=== PATIENT | male | born 1985 | race Two or more races ===

== ENCOUNTER 2017-03-16 10:16 | Inpatient (IN) | payer OTHER ==
[~2017-03-16] VITALS: Ht 172.7 cm; Wt 90.7 kg
[2017-03-16] MEDS ORDERED: Morphine Sulfate 4mg/ml Inj IVP ONE (10:30)
[2017-03-16] MEDS ORDERED: ceFAZolin sod 1 GM in NS 55 ML IVPB ONE (10:30)
[2017-03-16] MEDS ORDERED: TdaP Vaccine 0.5ml Syr IM ONE (10:45)
[2017-03-16 10:49] LABS: BASOPHILS % (AUTO) 1.3 % (0.0-2.0); EOSINOPHILS % (AUTO) 1.4 % (0.0-3.0); LYMPHOCYTES % (AUTO) 37.4 % (20.0-45.0); MEAN CORPUSCULAR HEMOGLOBIN 28.5 PG (27.0-31.0); MEAN CORPUSCULAR HGB CONC 33.2 G/DL (32.0-36.0); MEAN CORPUSCULAR VOLUME 86 FL (80-99); MEAN PLATELET VOLUME 7.9 FL (6.5-10.1); MONOCYTES % (AUTO) 8.5 % (1.0-10.0); NEUTROPHILS % (AUTO) 51.4 % (45.0-75.0); PLATELET COUNT 262 K/UL (150-450); RED BLOOD COUNT 5.66 M/UL (4.70-6.10); RED CELL DISTRIBUTION WIDTH 12.9 % (11.6-14.8); WHITE BLOOD COUNT 7.8 K/UL (4.8-10.8)
[2017-03-16 11:05] VITALS: BP 141/67
--- NOTE | 2017-03-16 11:06 | Emergency Room Report ---
History of Present Illness General Chief Complaint: Lower Extremity Injury Source: Patient Present Illness HPI Patient is a 31-year-old male who presented after increased pain to his right foot. Patient had reportedly been at work when he trapped his toe and the loading ramp. The patient having pain to the first and second toes. He denied other locations of pain. Patient had no recent tetanus vaccine. Patient reports not having anything to eat or drink since approximately 6 AM. Injury occurred approximately 15-20 minutes prior to arrival. Allergies: Coded Allergies: No Known Allergies (Unverified , 03/16/17) Patient History Past Medical History: see triage record Reviewed Nursing Documentation: PMH: Agreed, PSxH: Agreed Nursing Documentation-PMH Past Medical History: No Stated History Review of Systems All Other Systems: negative except mentioned in HPI Physical Exam Vital Signs Date Time Temp Pulse Resp B/P Pulse Ox O2 Delivery O2 Flow Rate FiO2 03/16/17 10:18 97.9 97 18 232/86 98 Room Air Sp02 EP Interpretation: reviewed, normal General Appearance: normal inspection, well appearing, no apparent distress, alert, GCS 15, non-toxic Head: normocephalic, atraumatic ENT: normal ENT inspection, hearing grossly normal, normal voice Neck: normal inspection, full range of motion, supple, no bony tend Respiratory: normal inspection, lungs clear, normal breath sounds, no respiratory distress, no retraction, no wheezing Cardiovascular #1: regular rate, rhythm, no edema Gastrointestinal: normal inspection, normal bowel sounds, non tender, soft, no guarding, no hernia Genitourinary: no CVA tenderness Musculoskeletal: back normal, normal range of motion, other - amputation to right 1st and 2nd toes. Neurologic: normal inspection, alert, oriented x3, responsive, microsoft dynamics developer III-XII nml as tested, speech normal Psychiatric: normal inspection, judgement/insight normal, mood/affect normal Skin: normal inspection, normal color, no rash Medical Decision Making Diagnostic Impression: Primary Impression: Amputation of great toe, right, traumatic Additional Impression: Amputated toe of right foot ER Course Patient presented for foot pain. Differential diagnosis included was not limited to amputation, fracture, dislocation, among others.Because of complexity of patient's case laboratory testing and imaging studies were ordered. X-ray imaging of the right foot showed a distal phalanx amputation of the right first and second toe. Dr. Jacob Dunn was contacted for plastic surgeon management of the wounds. Patient was given IV Ancef and tetanus vaccine was updated. Dr. Shah was contacted for Dr. Can for inpatient management. Labs Test 03/16/17 10:36 White Blood Count 7.8 K/UL (4.8-10.8) Red Blood Count 5.66 M/UL (4.70-6.10) Hemoglobin 16.1 G/DL (14.2-18.0) Hematocrit 48.6 % (42.0-52.0) Mean Corpuscular Volume 86 FL (80-99) Mean Corpuscular Hemoglobin 28.5 PG (27.0-31.0) Mean Corpuscular Hemoglobin Concent 33.2 G/DL (32.0-36.0) Red Cell Distribution Width 12.9 % (11.6-14.8) Platelet Count 262 K/UL (150-450) Mean Platelet Volume 7.9 FL (6.5-10.1) Neutrophils (%) (Auto) 51.4 % (45.0-75.0) Lymphocytes (%) (Auto) 37.4 % (20.0-45.0) Monocytes (%) (Auto) 8.5 % (1.0-10.0) Eosinophils (%) (Auto) 1.4 % (0.0-3.0) Basophils (%) (Auto) 1.3 % (0.0-2.0) Prothrombin Time 10.0 SEC (9.30-11.50) Prothromb Time International Ratio 1.0 (0.9-1.1) Activated Partial Thromboplast Time 25 SEC (23-33) Sodium Level 139 mEQ/L (135-145) Potassium Level 3.5 mEQ/L (3.4-4.9) Chloride Level 99 mEQ/L (98-107) Carbon Dioxide Level 23 mEQ/L (20-30) Anion Gap 17 (5-15) Blood Urea Nitrogen 19 mg/dL (7-23) Creatinine 1.2 mg/dL (0.7-1.2) Estimat Glomerular Filtration Rate > 60 mL/min (>60) Glucose Level 114 mg/dL (74-106) Calcium Level 9.2 mg/dL (8.6-10.2) Total Bilirubin 0.3 mg/dL (0.0-1.2) Aspartate Amino Transf (AST/SGOT) 20 U/L (5-40) Alanine Aminotransferase (ALT/SGPT) 36 U/L (3-41) Alkaline Phosphatase 59 U/L (40-129) Total Protein 7.5 g/dL (6.6-8.7) Albumin 4.7 g/dL (3.5-5.2) Globulin 2.8 g/dL Albumin/Globulin Ratio 1.6 (1.0-2.7) EKG Diagnostic Results Rate: normal Rhythm: NSR ST Segments: no acute changes Chest X-Ray Diagnostic Results EP Interpretation: Yes Findings: no consolidation, no effusion, no pneumothorax, no acute cardiopulmonary disease Number of Views: 1 Last Vital Signs Date Time Temp Pulse Resp B/P Pulse Ox O2 Delivery O2 Flow Rate FiO2 03/16/17 10:18 97.9 97 18 232/86 98 Room Air Status: unchanged Disposition: ADMITTED INPATIENT Condition: Serious Referrals: NOT CHOSEN IPA/,REFERRING (PCP) Jerry Bearden Mar 16, 2017 11:06
[2017-03-16 11:10] LABS: ALANINE AMINOTRANSFERASE 36 U/L (3-41); ALBUMIN/GLOBULIN RATIO 1.6 (1.0-2.7); ANION GAP 17 (5-15); ASPARTATE AMINO TRANSFERASE 20 U/L (5-40); CALCIUM 9.2 mg/dL (8.6-10.2); CARBON DIOXIDE 23 mEQ/L (20-30); CHLORIDE 99 mEQ/L (98-107); CREATININE 1.2 mg/dL (0.7-1.2); GLOMERULAR FILTRATION RATE > 60 mL/min (>60); HEMOLYSIS 7; POTASSIUM 3.5 mEQ/L (3.4-4.9); SODIUM 139 mEQ/L (135-145); TOTAL PROTEIN 7.5 g/dL (6.6-8.7)
[2017-03-16] MEDS ORDERED: Morphine Sulfate 4mg/ml Inj IVP PRN (12:45)
--- NOTE | 2017-03-16 12:52 | History and Physical ---
History of Present Illness General Date patient seen: Mar 16, 2017 Time patient seen: 12:40 Reason for Hospitalization: Lower Extremity Injury Present Illness HPI 31yo male with no sig pmh who presents with RLE work-related injury. Pt was working on the job where he lifted some stuff and partially amputated his right great and second toe. Per , a cone tender fell on pt's foot and affected his R 1st and 2nd toes. Patient had reportedly been at work when he trapped his toe and the loading ramp. The patient having pain to the first and second toes. He denied other locations of pain. Patient had no recent tetanus vaccine. Patient reports not having anything to eat or drink since approximately 6 AM. Injury occurred approximately 15-20 minutes prior to arrival to ED. Allergies: Coded Allergies: No Known Allergies (Unverified , 03/16/17) Patient History History Provided By: Patient, Family Member, Medical Record, EMS Healthcare decision maker Resuscitation status Advanced Directive on File Past Medical/Surgical History Past Medical/Surgical History: (1) No significant past medical history (2) No significant past surgical history Family History Family History: No significant family history Social History Social History: (1) No significant social history Review of Systems Constitutional: Reports: no symptoms Eye: Reports: no symptoms ENT: Reports: no symptoms Respiratory: Reports: no symptoms Cardiovascular: Reports: no symptoms Gastrointestinal: Reports: no symptoms Genitourinary: Reports: no symptoms Musculoskeletal: Reports: muscle pain Skin: Reports: no symptoms Psychiatric: Reports: no symptoms Neurological: Reports: no symptoms Endocrine: Reports: no symptoms Hematologic/Lymphatic: Reports: no symptoms All Other Systems: negative except mentioned in HPI Physical Exam Physical Exam Narrative General: alert, cooperative, no distress, appears stated age Head: normocephalic, without obvious abnormality, atraumatic Eyes: conjunctivae/corneas clear. PERRL, EOM's intact Throat: lips, mucosa, and tongue normal. MMM Neck: supple, symmetrical, trachea midline, and no JVD Lungs: clear to auscultation bilaterally Heart: regular rate and rhythm, S1, S2 normal, no murmur, click, rub or gallop Abdomen: soft, non-tender, non-distended, bowel sounds normal; no masses or organomegaly Extremities: The nail bed as well as the distal portion of the pulp had been amputated off of the great and second toe with the distal end of the distal phalanx exposed on both toes. The trump of the nail bed remains visible. The soft tissue appears to have no visible undamaged vessels for replantation. Pulses: 2+ and symmetric Skin: skin color, texture, turgor normal; no rashes or lesions Neurologic: grossly normal, no focal deficits Last 24 Hour Vital Signs Date Time Temp Pulse Resp B/P Pulse Ox O2 Delivery O2 Flow Rate FiO2 03/16/17 11:20 97.8 03/16/17 11:05 98.0 87 16 141/67 98 Room Air 03/16/17 10:18 97.9 97 18 232/86 98 Room Air Laboratory Tests Test 03/16/17 10:36 White Blood Count 7.8 K/UL (4.8-10.8) Red Blood Count 5.66 M/UL (4.70-6.10) Hemoglobin 16.1 G/DL (14.2-18.0) Hematocrit 48.6 % (42.0-52.0) Mean Corpuscular Volume 86 FL (80-99) Mean Corpuscular Hemoglobin 28.5 PG (27.0-31.0) Mean Corpuscular Hemoglobin Concent 33.2 G/DL (32.0-36.0) Red Cell Distribution Width 12.9 % (11.6-14.8) Platelet Count 262 K/UL (150-450) Mean Platelet Volume 7.9 FL (6.5-10.1) Neutrophils (%) (Auto) 51.4 % (45.0-75.0) Lymphocytes (%) (Auto) 37.4 % (20.0-45.0) Monocytes (%) (Auto) 8.5 % (1.0-10.0) Eosinophils (%) (Auto) 1.4 % (0.0-3.0) Basophils (%) (Auto) 1.3 % (0.0-2.0) Prothrombin Time 10.0 SEC (9.30-11.50) Prothromb Time International Ratio 1.0 (0.9-1.1) Activated Partial Thromboplast Time 25 SEC (23-33) Sodium Level 139 mEQ/L (135-145) Potassium Level 3.5 mEQ/L (3.4-4.9) Chloride Level 99 mEQ/L (98-107) Carbon Dioxide Level 23 mEQ/L (20-30) Anion Gap 17 (5-15) H Blood Urea Nitrogen 19 mg/dL (7-23) Creatinine 1.2 mg/dL (0.7-1.2) Estimat Glomerular Filtration Rate > 60 mL/min (>60) Glucose Level 114 mg/dL (74-106) H Calcium Level 9.2 mg/dL (8.6-10.2) Total Bilirubin 0.3 mg/dL (0.0-1.2) Aspartate Amino Transf (AST/SGOT) 20 U/L (5-40) Alanine Aminotransferase (ALT/SGPT) 36 U/L (3-41) Alkaline Phosphatase 59 U/L (40-129) Total Protein 7.5 g/dL (6.6-8.7) Albumin 4.7 g/dL (3.5-5.2) Globulin 2.8 g/dL Albumin/Globulin Ratio 1.6 (1.0-2.7) Height (Feet): 5 Height (Inches): 8.00 Weight (Pounds): 200 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 Status: stable Assessment/Plan Admit to inpt Plastic surgery consulted NPO for possible OR later today or tomorrow IV ancef mIVFs If patient is required to have surgery, based on the patient's medical history, and other available ancillary data, the patient is a LOW risk for an INTERMEDIATE risk procedure. Per the most recent ACC/AHA guidelines, the patient does not need any further cardiopulmonary testing prior to the procedure and there do not appear to be any clear medical contraindications to proceeding with the proposed procedure. D/w pt, family, plastic surgery. Jose Valles M.D. Mar 16, 2017 12:42
[2017-03-16] MEDS: D5 1/2NS 1,000 ML IV SCH ×2 (13:33→23:33)
[2017-03-16 14:07] VITALS: BP 137/65
[2017-03-16 16:00] VITALS: BP 138/70
[2017-03-16] MEDS: Morphine Sulfate 2mg/ml Inj IVP PRN ×2 (16:02→22:23)
--- NOTE | 2017-03-16 16:19 | Diagnostic Imaging Report ---
Indication: Cough Technique: One view of the chest Comparison: none Findings: Lungs and pleural spaces are clear. Heart size is normal Impression: No acute process
--- NOTE | 2017-03-16 17:05 | Diagnostic Imaging Report ---
Indication: PAIN Technique: 3 views right foot Comparison: none Findings: There is evidence of indication of the terminal tuft of the first and second digits. No other acute fracture or dislocation. There is hallux longus. There is hammertoe deformity of the second through fifth digits. There is pes cavus. Impression: Evidence of amputation of the terminal tuft of the first and second digit. Uncertain as whether this is due to acute trauma or prior surgery-correlate with clinical findings
[2017-03-16] MEDS: ceFAZolin sod 1 GM in D5W 55 ML IVPB SCH (18:13)
[2017-03-16 20:24] VITALS: BP 121/61
[2017-03-16] MEDS ORDERED: Zolpidem 5mg tab ORAL PRN (21:00)
[2017-03-16] MEDS ORDERED: Miralax 17gm pkt ORAL PRN (21:00)
[2017-03-16] MEDS ORDERED: Milk of Magnesia 30ml Ud ORAL PRN (21:00)
[2017-03-16] MEDS: Docusate 100mg tablet ORAL SCH (22:16)
--- NOTE | 2017-03-16 23:18 | Consultation ---
DATE OF CONSULTATION: 03/16/2017 PLASTIC SURGERY CONSULT INDICATION FOR CONSULTATION: Partial amputation of the right great and second toe. HISTORY OF PRESENT ILLNESS: The patient is a 31-year-old male who was working on the job where he lifted some stuff and partially amputated his right great and second toe. It was unclear exactly what happened secondary to language barrier. He was subsequently brought to [facility] emergency room for evaluation and treatment. After evaluating the injuries, the ER doctor called the Plastic Surgery consult. PAST MEDICAL HISTORY: None. PAST SURGICAL HISTORY: None. MEDICATIONS: Current medications, none. ALLERGIES TO MEDICATIONS: None SOCIAL HISTORY: Not immediately available. REVIEW OF SYSTEMS: Just pain and discomfort in the right big toe and second toe. PHYSICAL EXAMINATION: GENERAL: The patient is comfortable, resting on the stretcher, in no acute distress. VITAL SIGNS: Stable. Hemodynamically stable. HEENT: Head is normocephalic and atraumatic. No bony step-offs. No scalp lacerations. Pupils equal, round, and reactive to light. Extraocular motion intact and symmetrical bilaterally. External nose, mouth, oral cavity and ears all appear normal. NECK: Supple. No JVD. No palpable masses. No bruits. CHEST: Clear to auscultation. No wheezes, rales, crackles. CARDIOVASCULAR: Normal sinus rhythm. Normal S1 and S2. No murmurs, rubs, gallops. ABDOMEN: Soft, nontender, and nondistended. No guarding, rebound or rigidity. EXTREMITIES: Full range of motion. No gross deformities. Neurovascularly intact. 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 The nail bed as well as the distal portion of the pulp had been amputated off of the great and second toe with the distal end of the distal phalanx exposed on both toes. The trump of the nail bed remains visible. The soft tissue appears to have no visible undamaged vessels for replantation. ASSESSMENT AND PLAN: The patient is a 31-year-old male, who had a partial amputation of the right great and second toe that requires revision of the stump as well as reconstruction of the great and second toe. Risks, benefits and alternatives were discussed with him through a electric cutter operator. He understands and agrees to proceed with the surgical plan where I would join the bone distal phalanx of both the great and second toe of the right foot with VY advancement flaps to cover the distal and may also use portions of the amputated toe for full-thickness skin graft and possibly some other tissue rearrangement as needed to obtain good bone coverage. He understands that his toes will never appear the same but he will be able to keep his toes they will just have a different appearance following the reconstruction, they will never be normal again. He understands this. Arrangements will be made. He will be admitted to the medical service awaiting surgery. Jacob Dunn M.D. DR: ISAK JOB#: [id number] CC:
[2017-03-17] VITALS (12 sets, daily range): BP systolic 110–147; BP diastolic 60–88
[2017-03-17] MEDS: ceFAZolin sod 1 GM in D5W 55 ML IVPB SCH ×3 (02:12→18:27)
[2017-03-17] MEDS: Morphine Sulfate 2mg/ml Inj IVP PRN (02:43)
[2017-03-17] MEDS: Docusate 100mg tablet ORAL SCH ×2 (08:10→18:27)
[2017-03-17 08:34] LABS: BASOPHILS % (AUTO) 1.2 % (0.0-2.0); EOSINOPHILS % (AUTO) 1.2 % (0.0-3.0); MEAN CORPUSCULAR HEMOGLOBIN 29.2 PG (27.0-31.0); MEAN CORPUSCULAR HGB CONC 33.5 G/DL (32.0-36.0); MEAN CORPUSCULAR VOLUME 87 FL (80-99); MEAN PLATELET VOLUME 8.1 FL (6.5-10.1); MONOCYTES % (AUTO) 8.7 % (1.0-10.0); NEUTROPHILS % (AUTO) 66.8 % (45.0-75.0); PLATELET COUNT 229 K/UL (150-450); RED BLOOD COUNT 4.91 M/UL (4.70-6.10); RED CELL DISTRIBUTION WIDTH 12.9 % (11.6-14.8); WHITE BLOOD COUNT 8.9 K/UL (4.8-10.8)
[2017-03-17 09:23] LABS: ALANINE AMINOTRANSFERASE 27 U/L (3-41); ALBUMIN/GLOBULIN RATIO 1.7 (1.0-2.7); ANION GAP 12 (5-15); ASPARTATE AMINO TRANSFERASE 15 U/L (5-40); CALCIUM 8.9 mg/dL (8.6-10.2); CARBON DIOXIDE 26 mEQ/L (20-30); CHLORIDE 99 mEQ/L (98-107); CREATININE 1.2 mg/dL (0.7-1.2); GLOMERULAR FILTRATION RATE > 60 mL/min (>60); HEMOLYSIS 6; POTASSIUM 4.5 mEQ/L (3.4-4.9); SODIUM 137 mEQ/L (135-145); TOTAL PROTEIN 6.3 g/dL (6.6-8.7)
[2017-03-17] MEDS: D5 1/2NS 1,000 ML IV SCH (09:33)
[2017-03-17] MEDS ORDERED: Bacitracin 50000 Units Vial ONE (11:47)
[2017-03-17] MEDS ORDERED: Bupivacaine w/Epi 0.5% 30ml Vial INJ ONE (11:47)
[2017-03-17] MEDS ORDERED: Lidocaine 1% 10mg/ml/Epi 0.005mg/ml 30ml vial INJ ONE (11:47)
[2017-03-17] MEDS ORDERED: Propofol 10mg/ml 20ml IV ONE (12:10)
--- NOTE | 2017-03-17 12:32 | Pre-Procedure Note/Attestation ---
Pre-Procedure Note/Attestation Complete Prior to Procedure Planned Procedure: right Procedure Narrative: Right big toe and second toe amputation stump revision and reconstruction Indications for Procedure Pre-Operative Diagnosis: Partial amputation of right great toe and second toe Attestation I attest that I discussed the nature of the procedure; its benefits; risks and complications; and alternatives (and the risks and benefits of such alternatives ), prior to the procedure, with the patient (or the patient's legal b2b outside sales representative). I attest that, if there was a reasonable possibility of needing a blood transfusion, the patient (or the patient's legal b2b outside sales representative) was given the [facility] standardized written summary, pursuant to the Virgil Simeon Blood Safety Act ([place] Health and Safety Code # 1645, as amended). I attest that I re-evaluated the patient just prior to the surgery and that there has been no change in the patient's H&P, except as documented below: HEATHER RENDON M.D. Mar 17, 2017 12:32
--- NOTE | 2017-03-17 13:12 | Anethesia Preoperative Eval ---
Anesthesia Pre-op PMH/ROS General Date of Evaluation: Mar 17, 2017 Time of Evaluation: 13:11 Anesthesiologist: Olivia Mallampati Score Class I : Soft palate, uvula, fauces, pillars visible Class II: Soft palate, uvula, fauces visible Class III: Soft palate, base of uvula visible Class IV: Only hard plate visible Mallampati Classification: Class II Surgeon: JULIETA Diagnosis: Toe Trauma Surgical Procedure: Toe Amputaion Family History: no anesthesia problems Allergies: Coded Allergies: No Known Allergies (Unverified , 03/16/17) Medications: see eMAR Past Medical History Cardiovascular: Denies: CAD, HTN, NE, arrhythmia, other, valve dz Pulmonary: Denies: COPD, AMY, asthma, other Gastrointestinal/Genitourinary: Denies: CRI, ESRD, GERD, other Neurologic/Psychiatric: Denies: CVA, TIA, dementia, depression/anxiety, other Endocrine: Denies: DM, hypothyroidism, other, steroids HEENT: Denies: [place] (L), [place] (R), cataract (L), cataract (R), glaucoma, other Hematology/Immune: Denies: DVT, anemia, bleeding disorder, other Musculoskeletal/Integumentary: Denies: DDD, DJD, OA, RA, edema, other Anesthesia Pre-op Phys. Exam Physician Exam Last Vital Signs Date Time Temp Pulse Resp B/P Pulse Ox O2 Delivery O2 Flow Rate FiO2 03/17/17 08:00 97.9 61 20 110/67 99 Room Air Constitutional: NAD Neurologic: CN 2-12 intact Cardiovascular: RRR Gastrointestinal: S/NT/ND Airway Exam Mallampati Score: Class II Anesthesia Pre-op A/P Labs Hematology Test 03/17/17 08:15 White Blood Count 8.9 K/UL (4.8-10.8) Red Blood Count 4.91 M/UL (4.70-6.10) Hemoglobin 14.3 G/DL (14.2-18.0) Hematocrit 42.7 % (42.0-52.0) Mean Corpuscular Volume 87 FL (80-99) Mean Corpuscular Hemoglobin 29.2 PG (27.0-31.0) Mean Corpuscular Hemoglobin Concent 33.5 G/DL (32.0-36.0) Red Cell Distribution Width 12.9 % (11.6-14.8) Platelet Count 229 K/UL (150-450) Mean Platelet Volume 8.1 FL (6.5-10.1) Neutrophils (%) (Auto) 66.8 % (45.0-75.0) Lymphocytes (%) (Auto) 22.0 % (20.0-45.0) Monocytes (%) (Auto) 8.7 % (1.0-10.0) Eosinophils (%) (Auto) 1.2 % (0.0-3.0) Basophils (%) (Auto) 1.2 % (0.0-2.0) Chemistry Test 03/17/17 08:15 Sodium Level 137 mEQ/L (135-145) Potassium Level 4.5 mEQ/L (3.4-4.9) Chloride Level 99 mEQ/L (98-107) Carbon Dioxide Level 26 mEQ/L (20-30) Anion Gap 12 (5-15) Blood Urea Nitrogen 15 mg/dL (7-23) Creatinine 1.2 mg/dL (0.7-1.2) Estimat Glomerular Filtration Rate > 60 mL/min (>60) Glucose Level 118 mg/dL (74-106) H Calcium Level 8.9 mg/dL (8.6-10.2) Total Bilirubin 0.3 mg/dL (0.0-1.2) Aspartate Amino Transf (AST/SGOT) 15 U/L (5-40) Alanine Aminotransferase (ALT/SGPT) 27 U/L (3-41) Alkaline Phosphatase 49 U/L (40-129) Total Protein 6.3 g/dL (6.6-8.7) L Albumin 4.0 g/dL (3.5-5.2) Globulin 2.3 g/dL Albumin/Globulin Ratio 1.7 (1.0-2.7) ELEONORA TERRY M.D. Mar 17, 2017 13:12
[2017-03-17] MEDS ORDERED: Norco 5mg/325mg tab ORAL PRN (13:15)
[2017-03-17] MEDS ORDERED: fentaNYL 100 mcg/2 mL IV PRN (13:15)
[2017-03-17] MEDS ORDERED: Ketorolac 30mg Inj IV PRN (13:15)
[2017-03-17] MEDS ORDERED: Hydromorphone 0.5mg/0.5ml inj IVP PRN (13:15)
--- NOTE | 2017-03-17 13:36 | Immediate Post-Op Evaluation ---
Immediate Post-Op Evalulation Immediate Post-Op Evalulation Procedure: Toe Amputaion Date of Evaluation: Mar 17, 2017 Time of Evaluation: 13:45 IV Fluids: 500 Blood Products: 0 Estimated Blood Loss: 5 Urinary Output: 0 Blood Pressure Systolic: 150 Blood Pressure Diastolic: 75 Pulse Rate: 80 Respiratory Rate: 20 O2 Sat by Pulse Oximetry: 98 Temperature (Fahrenheit): 98 Pain Score (1-10): 2 Nausea: No Vomiting: No Complications na Patient Status: awake Hydration Status: adequate Drug: Ancef 1G Given Within 1 Hr of Incision: Yes Time Given: 12:45 ELEONORA TERRY M.D. Mar 17, 2017 13:36
--- NOTE | 2017-03-17 13:36 | Brief Operative Note ---
Immediate Post Operative Note Operative Note Pre-op Diagnosis: Partial amputation of right great toe and second toe Procedure: Right great toe and second toe soft tissue and bone debridement with washout, V to Y advancement flap reconstruction of right great and second toe Post-op Diagnosis: same as pre-op Findings: consistent w/pre-op dx studies Surgeon: Heather Rendon MD Developmental Mathematics Instructor: None Anesthesia: MAC Specimen: none Complications: none Condition: stable Estimated Blood Loss: minimal Drains: none Tourniquet time: 30 - min Implant(s) used?: No HEATHER RENDON M.D. Mar 17, 2017 13:36
[2017-03-17] MEDS ORDERED: Morphine Sulfate 2mg/ml Inj IVP PRN (13:45)
[2017-03-17] MEDS ORDERED: Morphine Sulfate 4mg/ml Inj IVP PRN (13:45)
[2017-03-17] MEDS: D5 1/2NS w/KCl 20mEq 1,000 ML IV SCH (15:06)
--- NOTE | 2017-03-17 18:36 | General Progress Note ---
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 Status: stable Assessment/Plan s/p Right great toe and second toe soft tissue and bone debridement with washout , V to Y advancement flap reconstruction of right great and second toe on - [facility] plastic surgery rec's - encourage mobilization/ambulation - encourage incentive spirometry to optimize pulmonary hygiene - DVT/GI prophylaxis as appropriate - ctm CBC and hemodynamics - ctm electrolytes, adjust/replete prn - PT/OT - pain control, supportive care, bowel regimen - DC planning Subjective Date patient seen: Mar 17, 2017 Time patient seen: 18:36 ROS Limited/Unobtainable: No Constitutional: Reports: no symptoms HEENT: Reports: no symptoms Cardiovascular: Reports: no symptoms Respiratory: Reports: no symptoms Gastrointestinal/Abdominal: Reports: no symptoms Genitourinary: Reports: no symptoms Neurologic/Psychiatric: Reports: no symptoms Endocrine: Reports: no symptoms Hematologic/Lymphatic: Reports: no symptoms Allergies: Coded Allergies: No Known Allergies (Unverified , 03/16/17) All Systems: reviewed and negative except above Subjective s/p Right great toe and second toe soft tissue and bone debridement with washout , V to Y advancement flap reconstruction of right great and second toe today Pain controlled Tolerating PO Objective Last 24 Hour Vital Signs Date Time Temp Pulse Resp B/P Pulse Ox O2 Delivery O2 Flow Rate FiO2 03/17/17 15:58 Nasal Cannula 2.0 28 03/17/17 15:58 98 Nasal Cannula 2.0 28 03/17/17 14:40 98.0 76 20 128/77 100 Room Air 03/17/17 14:28 98.0 85 20 127/60 97 Nasal Cannula 3.0 85 03/17/17 14:15 76 20 115/72 97 Nasal Cannula 3.0 78 03/17/17 14:00 78 20 125/65 97 Nasal Cannula 3.0 78 03/17/17 13:50 92 20 139/67 97 Nasal Cannula 3.0 94 03/17/17 13:45 90 20 140/70 98 Nasal Cannula 3.0 94 03/17/17 13:40 97.0 79 20 128/64 99 Room Air 03/17/17 13:40 98.0 94 20 147/88 98 Nasal Cannula 3.0 94 03/17/17 13:35 80 20 98 03/17/17 08:00 97.9 61 20 110/67 99 Room Air 03/17/17 04:30 98.1 82 19 128/69 95 Room Air 03/17/17 00:17 97.9 80 19 120/70 94 Room Air 03/16/17 20:24 98.1 82 18 121/61 95 Room Air Intake and Output 03/16/17 03/17/17 19:00 07:00 Intake Total 250 ml 1200 ml Balance 250 ml 1200 ml Intake Oral 250 ml IV Total 1200 ml # Voids 2 Laboratory Tests 03/17/17 08:15: White Blood Count 8.9, Red Blood Count 4.91, Hemoglobin 14.3, Hematocrit 42.7, Mean Corpuscular Volume 87, Mean Corpuscular Hemoglobin 29.2, Mean Corpuscular Hemoglobin Concent 33.5, Red Cell Distribution Width 12.9, Platelet Count 229, Mean Platelet Volume 8.1, Neutrophils (%) (Auto) 66.8, Lymphocytes (%) (Auto) 22.0, Monocytes (%) (Auto) 8.7, Eosinophils (%) (Auto) 1.2, Basophils (%) (Auto ) 1.2, Sodium Level 137, Potassium Level 4.5, Chloride Level 99, Carbon Dioxide Level 26, Anion Gap 12, Blood Urea Nitrogen 15, Creatinine 1.2, Estimat Glomerular Filtration Rate > 60, Glucose Level 118H, Calcium Level 8.9, Total Bilirubin 0.3, Aspartate Amino Transf (AST/SGOT) 15, Alanine Aminotransferase ( ALT/SGPT) 27, Alkaline Phosphatase 49, Total Protein 6.3L, Albumin 4.0, Globulin 2.3, Albumin/Globulin Ratio 1.7 Height (Feet): 5 Height (Inches): 8.00 Weight (Pounds): 200 Objective General: alert, cooperative, no distress, appears stated age Head: normocephalic, without obvious abnormality, atraumatic Eyes: conjunctivae/corneas clear. PERRL, EOM's intact Throat: lips, mucosa, and tongue normal. MMM Neck: supple, symmetrical, trachea midline, and no JVD Lungs: clear to auscultation bilaterally Heart: regular rate and rhythm, S1, S2 normal, no murmur, click, rub or gallop Abdomen: soft, non-tender, non-distended, bowel sounds normal; no masses or organomegaly Extremities: extremities normal, atraumatic, no cyanosis or edema RLE in cast Pulses: 2+ and symmetric Skin: skin color, texture, turgor normal; no rashes or lesions Neurologic: grossly normal, no focal deficits Jose Valles M.D. Mar 17, 2017 18:36
[2017-03-18] MEDS: ceFAZolin sod 1 GM in D5W 55 ML IVPB SCH ×3 (01:36→17:35)
[2017-03-18] MEDS: D5 1/2NS w/KCl 20mEq 1,000 ML IV SCH ×2 (01:36→11:23)
[2017-03-18 04:00] VITALS: BP 118/61
[2017-03-18] MEDS: Oxycodone/Acetaminophen 5-325 ORAL PRN ×2 (06:05→09:43)
[2017-03-18 08:19] VITALS: BP 121/53
--- NOTE | 2017-03-18 08:19 | 48 Hour Post Anesthesia Eval ---
Post Anesthesia Evaluation Procedure: Toe Amputaion Date of Evaluation: Mar 18, 2017 Blood Pressure Systolic: 118 0: 61 Pulse Rate: 81 Respiratory Rate: 20 Temperature (Fahrenheit): 97.9 O2 Sat by Pulse Oximetry: 95 Airway: patent Nausea: No Vomiting: No Pain Intensity: 8 If pain is > 6 Comment: Pain medication ordered is not sufficient. Opiates should be increased. Hydration Status: adequate Cardiopulmonary Status: Stable Mental Status/LOC: patient returned to baseline Follow-up Care/Observations: As per surgery Post-Anesthesia Complications: No anesthetic complication Follow-up care needed: N/A ARLEY BRYAN M.D. Mar 18, 2017 08:19
[2017-03-18] MEDS: Docusate 100mg tablet ORAL SCH ×2 (08:37→17:35)
[2017-03-18] MEDS ORDERED: Morphine Sulfate 4mg/ml Inj IVP PRN (11:00)
[2017-03-18] MEDS ORDERED: Oxycodone/Acetaminophen 5-325 ORAL PRN ×2 (11:00)
[2017-03-18 12:05] VITALS: BP 135/65
[2017-03-18 16:00] VITALS: BP 118/65
[2017-03-18] MEDS ORDERED: OXYCODONE IR15 MG ORAL (18:21)
[2017-03-18] MEDS ORDERED: ACETAMINOPHEN500 MG ORAL (18:21)
[2017-03-18] MEDS: oxyCODONE 15mg IR tab ORAL PRN (18:58)
[2017-03-18] MEDS: Acetaminophen 500mg (ES) tab ORAL SCH (18:59)
[2017-03-18 20:00] VITALS: BP 136/77
[2017-03-18] MEDS: oxyCODONE 5mg IR tab ORAL PRN (23:10)
[2017-03-19] MEDS: ceFAZolin sod 1 GM in D5W 55 ML IVPB SCH ×3 (01:58→18:00)
[2017-03-19] MEDS: oxyCODONE 15mg IR tab ORAL PRN (03:03)
[2017-03-19 04:00] VITALS: BP 128/83
[2017-03-19 08:00] VITALS: BP 143/76
[2017-03-19] MEDS: Docusate 100mg tablet ORAL SCH ×2 (08:10→18:00)
[2017-03-19] MEDS: oxyCODONE 5mg IR tab ORAL PRN ×2 (08:11→13:51)
[2017-03-19] MEDS: Acetaminophen 500mg (ES) tab ORAL SCH ×3 (08:16→18:00)
--- NOTE | 2017-03-19 14:26 | General Progress Note ---
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 Status: stable Assessment/Plan s/p Right great toe and second toe soft tissue and bone debridement with washout , V to Y advancement flap reconstruction of right great and second toe on - [facility] plastic surgery rec's - encourage mobilization/ambulation - encourage incentive spirometry to optimize pulmonary hygiene - DVT/GI prophylaxis as appropriate - ctm CBC and hemodynamics - ctm electrolytes, adjust/replete prn - PT/OT - pain control, supportive care, bowel regimen - DC planning Subjective Date patient seen: Mar 18, 2017 Time patient seen: 13:00 ROS Limited/Unobtainable: No Constitutional: Reports: no symptoms HEENT: Reports: no symptoms Cardiovascular: Reports: no symptoms Respiratory: Reports: no symptoms Gastrointestinal/Abdominal: Reports: no symptoms Genitourinary: Reports: no symptoms Neurologic/Psychiatric: Reports: no symptoms Endocrine: Reports: no symptoms Hematologic/Lymphatic: Reports: no symptoms Allergies: Coded Allergies: No Known Allergies (Unverified , 03/16/17) All Systems: reviewed and negative except above Subjective POD#1 C/o uncontrolled pain, so meds uptitrated Tolerating PO Passing gas Ambulated w/ crutches Objective Last 24 Hour Vital Signs Date Time Temp Pulse Resp B/P Pulse Ox O2 Delivery O2 Flow Rate FiO2 03/19/17 08:00 97.7 74 19 143/76 97 Room Air 03/19/17 04:00 98.2 81 18 128/83 97 Room Air 03/18/17 20:00 97.9 70 18 136/77 94 Room Air 03/18/17 19:58 97.5 03/18/17 16:00 97.8 79 20 118/65 98 Room Air 89 03/18/17 14:52 97.5 Intake and Output 03/18/17 03/19/17 19:00 07:00 Intake Total 1805 ml 300 ml Output Total 650 ml 400 ml Balance 1155 ml -100 ml Intake Oral 950 ml 300 ml IV Total 855 ml Output Urine Total 650 ml 400 ml # Voids 1 2 # Bowel Movements 1 Height (Feet): 5 Height (Inches): 8.00 Weight (Pounds): 200 Objective General: alert, cooperative, no distress, appears stated age Head: normocephalic, without obvious abnormality, atraumatic Eyes: conjunctivae/corneas clear. PERRL, EOM's intact Throat: lips, mucosa, and tongue normal. MMM Neck: supple, symmetrical, trachea midline, and no JVD Lungs: clear to auscultation bilaterally Heart: regular rate and rhythm, S1, S2 normal, no murmur, click, rub or gallop Abdomen: soft, non-tender, non-distended, bowel sounds normal; no masses or organomegaly Extremities: extremities normal, atraumatic, no cyanosis or edema RLE in cast Pulses: 2+ and symmetric Skin: skin color, texture, turgor normal; no rashes or lesions Neurologic: grossly normal, no focal deficits Jose Valles M.D. Mar 19, 2017 14:26
--- NOTE | 2017-03-19 15:37 | Discharge Summary ---
Discharge Summary Hospital Course Date of Admission Mar 16, 2017 at 12:25 Date of Discharge 03/19/17 Admitting Diagnosis toe amputation HPI 31yo male with no sig pmh who presents with RLE work-related injury. Pt was working on the job where he lifted some stuff and partially amputated his right great and second toe. Per , a linotypist fell on pt's foot and affected his R 1st and 2nd toes. Patient had reportedly been at work when he trapped his toe and the loading ramp. The patient having pain to the first and second toes. He denied other locations of pain. Patient had no recent tetanus vaccine. Patient reports not having anything to eat or drink since approximately 6 AM. Injury occurred approximately 15-20 minutes prior to arrival to ED. Consultations Plastic surgery Procedures Right great toe and second toe soft tissue and bone debridement with washout, V to Y advancement flap reconstruction of right great and second toe on 03/17/17 Hospital Course Pt was admitted and seen by plastic surgery. Pt underwent Right great toe and second toe soft tissue and bone debridement with washout, V to Y advancement flap reconstruction of right great and second toe on 03/17/17 which he tolerated well. He was seen by PT and taught how to use crutches. He was able to ambulate w/ crutches. Once pain controlled, pt was discharged home. 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 Jacob Dunn in 2-3 weeks Jose Valles M.D. Mar 19, 2017 15:36
[2017-03-19] MEDS ORDERED: Neosporin Oint Ud Pkt TOPIC ONE (17:15)
[2017-03-19] MEDS ORDERED: Neosporin Oint 15gm TOPIC SCH (20:00)
--- NOTE | 2017-03-20 20:47 | Operative Note - Dictated ---
DATE OF OPERATION: 03/17/2017 PREOPERATIVE DIAGNOSIS: Partial amputation of the right big toe and second toe. POSTOPERATIVE DIAGNOSIS: Partial amputation of the right big toe and second toe. PROCEDURE: Debridement of right big toe and second toe of the soft tissue and bone as well as the nail bed and advancement flap reconstruction of the right big toe and second toe. INDICATION FOR SURGERY: Partial amputation of the right big toe and second toe with the exposed bone. SURGEON: Jacob Dunn M.D. MOTORIZED SQUAD CAPTAIN: None. ANESTHESIA: Under MAC sedation. COMPLICATIONS: None. FINDINGS DURING THIS PROCEDURE: Partial amputation of the right big toe and second toe through the nail bed and with loss of nail plate. Only a stump of nail bed remained. The distal phalanx of the right big toe and second toe were exposed sticking out and seen distal ends of both digits. OPERATIVE PROCEDURE NOT IN DETAIL: The patient was prepped and draped in the usual sterile fashion after anesthesia was induced. 1% lidocaine with epinephrine with 0.25% Marcaine with epinephrine was used for local digital block for both the right big toe and second toe. Once the digital block was administered and sufficient time had been allowed for the anesthetic to take effect, the soft tissue was debrided sharply using curved tenotomy scissors and then also a bur to debride down the bone. Once all the debridement was completed, both toes were irrigated copiously with normal saline with triple antibiotics. After irrigation of both wounds, all markings were made and the plantar aspect of both toes, and a V-shaped flap was marked out. Based on these markings, a #15 blade scalpel was used to make incision in the skin down to the fascia and connective tissue. Connective tissues were released to allow the advancement of V-shaped flap over the distal end of the toe. After complete release of the arm tethering ligaments, the soft tissue was rotated over the distal end of the distal phalanx while that had been debrided. The flap was then anchored in place using 3-0 nylon interrupted sutures bilaterally along the borders of the nail bed stump and then to the nail bed as well. This was done using interrupted 3-0 nylon sutures. The rest of the incision was closed in a V to Y shaped fashion using 3-0 nylon interrupted sutures. Once the incision was closed, exact same procedure was performed on the second toe. Once both toes were completed, the antibiotic ointment was applied along the suture line and both toes were covered with Xeroform gauze as well as Kerlix dressing. The patient tolerated the procedure well without any complications. The patient was awakened from anesthesia and transferred to the postanesthesia care unit in good stable condition. Jacob Dunn M.D. DR: BYRON JOB#: [id number] CC:
== END 2017-03-19 18:30 | disposition home or self-care (01) | DRG 909 ==
LOC: EMR 10:33 → 3E 12:25 → EDBEDREQ 12:42
PROC: 0KX Muscles, Transfer (ICD-10-PCS; principal; 2017-03-17 12:00)
PROC: 0QBQ0ZZ Excision of Right Toe Phalanx, Open Approach (ICD-10-PCS; principal; 2017-03-17 12:00)
DX: S98.121A Partial traumatic amputation of right great toe, initial encounter (principal); Z23 Encounter for immunization; S98.141A Partial traumatic amputation of one right lesser toe, initial encounter; W24.0XXA Contact with lifting devices, not elsewhere classified, initial encounter; Y92.89 Other specified places as the place of occurrence of the external cause; Y99.0 Civilian activity done for income or pay
CPT/HCPCS: 36415; 71010; 80053; 85025; 85610; 85730; 86850; 86900; 86901; 90471; 90715; 93005; 94003; 94150; 94760; J2405

== ENCOUNTER 2017-03-21 22:06 | Emergency (ER) | payer OTHER ==
[~2017-03-21] VITALS: Ht 172.7 cm; Wt 90.7 kg
[~2017-03-21 22:06] MED LIST: ACETAMINOPHEN500 MG ORAL; OXYCODONE IR15 MG ORAL
[2017-03-21 22:23] VITALS: BP 135/82
[2017-03-21] MEDS ORDERED: Clindamycin 900mg 50 ML IVPB ONE (23:00)
[2017-03-21] MEDS ORDERED: HYDROmorphone 1mg/ml Carpuject IVP ONE (23:00)
[2017-03-21 23:55] LABS: BASOPHILS % (AUTO) 1.1 % (0.0-2.0); EOSINOPHILS % (AUTO) 2.8 % (0.0-3.0); LYMPHOCYTES % (AUTO) 20.6 % (20.0-45.0); MEAN CORPUSCULAR HEMOGLOBIN 29.4 PG (27.0-31.0); MEAN CORPUSCULAR HGB CONC 34.7 G/DL (32.0-36.0); MEAN CORPUSCULAR VOLUME 85 FL (80-99); MEAN PLATELET VOLUME 7.6 FL (6.5-10.1); MONOCYTES % (AUTO) 10.2 % (1.0-10.0); NEUTROPHILS % (AUTO) 65.4 % (45.0-75.0); PLATELET COUNT 256 K/UL (150-450); RED BLOOD COUNT 5.25 M/UL (4.70-6.10); RED CELL DISTRIBUTION WIDTH 12.4 % (11.6-14.8); WHITE BLOOD COUNT 11.4 K/UL (4.8-10.8)
[2017-03-22] VITALS: BP 127/78
[2017-03-22 00:05] LABS: ANION GAP 13 (5-15); CALCIUM 9.4 mg/dL (8.6-10.2); CARBON DIOXIDE 29 mEQ/L (20-30); CHLORIDE 96 mEQ/L (98-107); CREATININE 1.2 mg/dL (0.7-1.2); GLOMERULAR FILTRATION RATE > 60 mL/min (>60); HEMOLYSIS 5; POTASSIUM 4.5 mEQ/L (3.4-4.9); SODIUM 138 mEQ/L (135-145)
[2017-03-22] MEDS ORDERED: CLINDAMYCIN HC300 MG ORAL (00:33)
--- NOTE | 2017-03-22 00:33 | Emergency Room Report ---
History of Present Illness General Chief Complaint: Skin Rash/Abscess Source: Patient, Family Member Present Illness HPI Is a 31-year-old male with no significant past medical history. He was just discharged from this hospital for traumatic indication of his 2 toes on the right foot. He had IV medication antibiotics. Has been home for the last few days. Now complaining of left arm pain. Is red and swollen. It was at the site of his IV. Pain is 8/10. Denies any fever or chills. Denies any nausea vomiting. No other complaint. Allergies: Coded Allergies: No Known Allergies (Unverified , 03/16/17) Patient History Past Medical History: see triage record, old chart reviewed Past Surgical History: other Pertinent Family History: none Social History: Denies: smoking Immunizations: UTD, other Reviewed Nursing Documentation: PMH: Agreed, PSxH: Agreed Review of Systems Eye: Denies: blurred vision, eye pain ENT: Denies: ear pain, nose congestion, throat swelling Respiratory: Denies: cough, shortness of breath Cardiovascular: Denies: chest pain, palpitations Gastrointestinal: Denies: abdominal pain, diarrhea, nausea, vomiting Musculoskeletal: Reports: joint swelling, muscle pain, Denies: back pain, joint pain Skin: Denies: rash Neurological: Denies: headache, numbness Endocrine: Denies: increased thirst, increased urine Hematologic/Lymphatic: Denies: easy bruising All Other Systems: negative except mentioned in HPI Physical Exam Vital Signs Date Time Temp Pulse Resp B/P Pulse Ox O2 Delivery O2 Flow Rate FiO2 03/21/17 22:10 98.4 104 14 135/82 96 Room Air vitals normal Sp02 EP Interpretation: reviewed, normal General Appearance: well appearing, no apparent distress, alert Head: normocephalic, atraumatic Eyes: bilateral eye EOMI, bilateral eye PERRL ENT: hearing grossly normal, normal pharynx Neck: full range of motion, supple, no meningismus Respiratory: chest non-tender, lungs clear, normal breath sounds Cardiovascular #1: regular rate, rhythm, no murmur Gastrointestinal: normal bowel sounds, non tender, no mass, no organomegaly, no bruit, non-distended Musculoskeletal: back normal, gait/station normal, normal range of motion, other - Left arm: He has tenderness along the biceps and the cephalic vein. There is hardness. There is warmth and redness. No fluctuant area appear full range of motion the elbow. Full range of motion of the shoulder. Sensation normal. Neurologic: alert, oriented x3 Psychiatric: mood/affect normal Skin: warm/dry Medical Decision Making Diagnostic Impression: Primary Impression: Phlebitis and thrombophlebitis of upper extremities Additional Impression: Cellulitis of left arm ER Course Patient presents with an infected phlebitis/thrombophlebitis of the left upper cephalic vein. No deep vein thrombosis. We'll put on antibiotics. No abscess. Lab Results Impression labs unremarkable. Last Vital Signs Date Time Temp Pulse Resp B/P Pulse Ox O2 Delivery O2 Flow Rate FiO2 03/22/17 00:00 98 18 127/78 99 Room Air 03/21/17 23:36 98.4 Status: improved Disposition: HOME, SELF-CARE Condition: Stable Scripts Clindamycin Hcl (CLINDAMYCIN HCL) 300 Mg Capsule 300 MG ORAL THREE TIMES A DAY, #21 CAP Prov: CARLIN NIEVES M.D. 03/22/17 Referrals: NOT CHOSEN IPA/,REFERRING (PCP) Additional Instructions: Followup with your Dr. in 2-3 days. Return if worse. Keep arm elevated. Warm compress to the area. CARLIN NIEVES M.D. Mar 22, 2017 00:33
[2017-03-22 00:41] VITALS: BP 127/78
--- NOTE | 2017-03-23 14:28 | Diagnostic Imaging Report ---
APPROVED REPORT CPT Code: 67496 Present Symptoms Upper Extremity Pain: Left Upper Extremity Edema: Left LEFT ARM: Imaging reveals acute thrombus in the left cephalic vein .The remaining segments are within normal limits. Imaging reveals patency of the internal jugular, subclavian, axillary and brachial veins. The basilic vein is also within normal limits. ER Doctor was notified of abnormal results at 11:45 PM.
== END 2017-03-22 00:43 | disposition home or self-care (01) ==
LOC: EMR 23:07
DX: L03.114 Cellulitis of left upper limb (principal); I80.8 Phlebitis and thrombophlebitis of other sites
CPT/HCPCS: 36415; 80048; 85025; 93971; 96360; 96374; 96375; 99284; J1170; J2405; S0077